=== PATIENT | male | born 1980 | race Two or more races ===

== ENCOUNTER 2018-08-31 11:31 | Inpatient (IN) | payer OTHER ==
[~2018-08-31] VITALS: Ht 172.7 cm; Wt 78.0 kg
--- NOTE | 2018-08-31 11:55 | NUR ---
Note undone in EDM - 08/31/18 at 1222 by CJUWONO C/O ON AND OFF ABDOMINAL PAIN AND BODY PAIN FOR 3 MONS LAST ALCOHOL INTAKE LAST NIGHT. STATES PAIN 8/10, ACHY, FEELING DEHYDRATED. PT AOX4, AMBULATORYVSS, RR EVEN AND UNLABORED ON RA.
--- NOTE | 2018-08-31 11:55 | NUR ---
C/O ON AND OFF ABDOMINAL PAIN AND BODY PAIN FOR 3 MONS LAST ALCOHOL INTAKE LAST NIGHT. STATES PAIN 8/10, ACHY, FEELING DEHYDRATED. PT AOX4, AMBULATORY, VSS, RR EVEN AND UNLABORED ON RA. APPEARS ANXIOUS. MOM AT BEDSIDE. SEEN BY DR KING
[2018-08-31] MEDS ORDERED: LORAZEPAM INJ 2 MG/ML VIAL ONE (11:59)
[2018-08-31] MEDS ORDERED: IV NS 0.9% 1,000 ML BAG IV ONE (12:00)
[2018-08-31] MEDS ORDERED: LORAZEPAM INJ 2 MG/ML VIAL IVP ONE (12:00)
[2018-08-31 12:08] LABS: BASOPHILS # (AUTO) 0.1 /CMM (0.0-0.2); BASOPHILS % (AUTO) 2.5 % (0.0-2.0); EOSINOPHILS % (AUTO) 2.5 % (0.0-6.0); HEMATOCRIT 41 % (39-51); HEMOGLOBIN 14.1 g/dL (13.5-17.5); LYMPHOCYTES # (AUTO) 0.7 /CMM (0.8-4.8); LYMPHOCYTES % (AUTO) 17.8 % (20.0-44.0); MEAN CORPUSCULAR HGB CONC 34 g/dl (31.0-36.0); MEAN CORPUSCULAR VOLUME 95 fL (80-96); MONOCYTES # (AUTO) 0.6 /CMM (0.1-1.30); MONOCYTES % (AUTO) 14.3 % (2.0-12.0); NEUTROPHILS # (AUTO) 2.6 /CMM (1.8-8.9); NEUTROPHILS % (AUTO) 62.9 % (43.0-81.0); PLATELET COUNT (AUTO) 115 /CMM (150-450); RED BLOOD CELL COUNT(AUTO) 4.35 MIL/uL (4.5-6.0); WHITE BLOOD COUNT (AUTO) 4.1 K/uL (4.3-11.0)
[2018-08-31 12:13] LABS: CALCIUM, SERUM 9.3 mg/dL (8.5-10.1); CREATININE 0.8 mg/dL (0.6-1.3); POTASSIUM 4.3 mmol/L (3.5-5.1)
[2018-08-31 12:21] LABS: ALBUMIN 4.3 g/dL (3.4-5.0); BILIRUBIN,DIRECT 0.4 mg/dL (0.0-0.2); BILIRUBIN,TOTAL 1.3 mg/dL (0.2-1.0); SALICYLATE 1.3 mg/dL (2.8-20.0); TOTAL PROTEIN, SERUM 9.2 g/dL (6.4-8.2)
--- NOTE | 2018-08-31 12:21 | NUR ---
IV ACCESS OBTAINED, MEDS GIVEN, IVF INFUSING. PT CECI WELL. PROVIDED URINAL FOR URINE SAMPLE
--- NOTE | 2018-08-31 12:25 | NUR ---
PT TAKEN TO RADIOLOGY VIA [facility]
--- NOTE | 2018-08-31 12:35 | NUR ---
PT BACK FROM RADIOLOGY. RECONNECTED TO IVF. WILL CONT TO MONITOR
--- NOTE | 2018-08-31 13:36 | NUR ---
URINE SENT TO STAT LAB
[2018-08-31 13:43] LABS: APPEARANCE,URINE Slightly Cloudy (CLEAR); BILIRUBIN,URINE SMALL (NEGATIVE); BLOOD, URINE Trace-intact Ery/uL (NEGATIVE); KETONES,URINE Trace (NEGATIVE); LEUKOCYTE ESTERASE ,URINE Negative (NEGATIVE); NITRITE, URINE Negative (NEGATIVE); PROTEIN,URINE 100 mg/dl (NEGATIVE); UGLUCOSE Negative (NEGATIVE)
--- NOTE | 2018-08-31 13:48 | NUR ---
Patient is resting comfortably in bed. Easily aroused. VSS
[2018-08-31 13:49] LABS: COLOR,URINE Dark Yellow (YELLOW)
[2018-08-31 13:55] LABS: BACTERIA,URINE None seen /HPF (None Seen); SQUAMOUS EPITHELIAL CELL,UR Few /HPF (None Seen); WBC,URINE 0-3 /HPF (0-3)
[2018-08-31 13:56] LABS: HYALINE CASTS, URINE 0-1 /LPF (None Seen)
--- NOTE | 2018-08-31 14:04 | NUR ---
REPORT GIVEN TO LUCY VILLAR FOR 207-2 MS
--- NOTE | 2018-08-31 14:50 | NUR ---
[facility]
[2018-08-31 16:00] VITALS: BP 139/86
--- NOTE | 2018-08-31 16:00 | NUR ---
MS QUICK MIXER OPERATOR NOTES PT ADMITTED TO MS UNIT VIA GURNEY IN STABLE CONDITION ACCOMPANIED BY ER STAFF. PT IS A/O X4, AFEBRILE. RESPIRATIONS ARE EVEN AND UNLABORED, NOT IN ANY ACUTE DISTRESS NOTED. PUPILS ARE REACTIVE TO LIGHT, BILATERAL HAND SHEETING PULLER ARE STRONG AND EQUAL. DENIES ANY PAIN AT THIS TIME, HOWEVER PT APPEAR TO BE SHAKY. ABDOMEN IS SOFT AND NONDISTENDED, BOWEL SOUNDS ARE PRESENT IN ALL 4 QUADRANTS UPON AUSCULTATION. DENIES ANY BLADDER DISCOMFORT. NO SKIN ISSUES NOTED. SKIN IS INTACT, KEPT CLEAN AND DRY. IV ACCESS TO LAC G18 INTACT, NO INFILTRATION NOTED. DRESSING KEPT CLEAN AND DRY. MOTHER AT BEDSIDE. TAYLOR PERDOMO NP MADE AWARE OF ADMISSION. SAFETY MEASURES ARE IN PLACE. INSTRUCTED PT TO USE CALL LIGHT WHEN ASSISTANCE IS NEEDED, CALL LIGHT IS LEFT WITHIN REACH. WILL MONITOR THROUGHOUT SHIFT FOR CONTINUITY OF CARE.
[2018-08-31] MEDS ORDERED: MAGNESIUM HYDROXIDE 30 ML UDC PO PRN (16:30)
[2018-08-31] MEDS ORDERED: IV NS 0.9% 1,000 ML IV PRN (16:30)
[2018-08-31] MEDS ORDERED: ACETAMINOPHEN 325 MG TABLET PO PRN (16:30)
[2018-08-31] MEDS ORDERED: ZOLPIDEM TARTRATE 5 MG TABLET PO PRN (16:30)
[2018-08-31] MEDS ORDERED: Z GUARD REMEDY 2 OZ OINT TP PRN (16:30)
[2018-08-31] MEDS: LORAZEPAM INJ 2 MG/ML VIAL IV PRN ×2 (17:17→23:21)
--- NOTE | 2018-08-31 18:57 | NUR ---
MS RN CLOSING NOTES PT ABLE TO MAKE NEEDS KNOWN, NEEDS MET AND RENDERED. PT IS A/O X4, AFEBRILE. RESPIRATIONS ARE EVEN AND UNLABORED, NOT IN ANY ACUTE DISTRESS NOTED. PT DENIES ANY PAIN AT THIS TIME. NO C/O SOB, N/V. IV SITE TO LAC INTACT, NO INFILTRATION NOTED. DRESSING KEPT CLEAN AND DRY. SAFETY MEASURES ARE IN PLACE. ADMINISTERED ATIVAN, WILL NOTE EFFECTIVENESS. REMINDED PT TO USE CALL LIGHT WHENA SSISTNACE IS NEEDED, CALL LIGHT IS LEFT WITHIN REACH. WILL ENDORSE TO NEXT SHIFT FOR CONTINUITY OF CARE.
--- NOTE | 2018-08-31 19:30 | NUR ---
MS RN NOTES: RECEIVED PT ON ROOM AIR AND TOLERATING WELL. NO SOB. NO S/S OF DISTRESS AT THIS TIME. PT HAS IV AND IS BEING INFUSED WITH IV NS AT 75ML/HR. MOTHER AT BEDSIDE. BED KEPT IN LOW, LOCKED POSITION, AND SIDE RAILS X 2UP. WILL CONTINUE TO MONITOR PT.
[2018-08-31] MEDS: HYDROCODONE/APAP 5/325MG 1 EACH TABLET PO PRN (20:18)
--- NOTE | 2018-08-31 20:20 | NUR ---
MS RN NOTES: PT COMPLAINING OF GENERALIZED ACHES/PAINS 10/31. PT WAS ADMINISTERED NORCO 5 PO. WILL CONTINUE TO MONITOR.
[2018-08-31 20:30] VITALS: BP 140/78
[2018-08-31] MEDS: ONDANSETRON HCL/PF 4 MG/2 ML VIAL IVP PRN (23:21)
--- NOTE | 2018-08-31 23:30 | NUR ---
MS RN NOTES: PT COMPLAINING OF FEELING NAUSEOUS. PT WAS ADMINISTERED ZOFRAN 4MG IV. PT ALSO APPEARS TO BE WITHDRAWN AND STATES HE DOES NOT FEEL VERY GOOD. PT WAS ADMINISTERED ATIVAN 2MG IV.
--- NOTE | 2018-09-01 00:35 | NUR ---
MS RN NOTES: EARL PERDOMO AT BEDSIDE.
--- NOTE | 2018-09-01 00:43 | NUR ---
MS RN NOTES: EARL PERODMO AT BEDSIDE.
[2018-09-01] MEDS: THIAMINE HCL 100 MG TABLET PO SCH ×2 (01:13→08:52)
[2018-09-01] MEDS: FOLIC ACID 1 MG TABLET PO SCH ×2 (01:13→08:51)
[2018-09-01] MEDS: HYDROCODONE/APAP 5/325MG 1 EACH TABLET PO PRN ×3 (01:22→13:45)
--- NOTE | 2018-09-01 01:23 | NUR ---
MS AYALA NOTES: PT COMPLAINING OF ABDOMINAL PAIN 10/31. PT WAS ADMINISTERED NORCO 5 PO. Addendum: 09/01/18 at 0124 by ALVARO TOLEDO RN HAD TO MANUALLY ADMIN MEDICATION IT DID NOT SAVE WHEN SAVED WAS PUSH D/T NO ASPHALT PAVER CONNECTION ON COMPUTER.
[2018-09-01] MEDS: LORAZEPAM INJ 2 MG/ML VIAL IV PRN ×2 (05:27→11:38)
[2018-09-01] MEDS: ONDANSETRON HCL/PF 4 MG/2 ML VIAL IVP PRN (05:27)
--- NOTE | 2018-09-01 05:32 | NUR ---
MS RN NOTES: PT NOTED WITH TREMORS AND VERBALIZING THAT HE FEELS LIKE THROWING UP. PT GIVEN ZOFRAN 4MG IV. PT ALSO GIVEN ATIVAN 2MG IV. WILL CONTINUE TO MONITOR.
[2018-09-01 06:46] LABS: BASOPHILS # (AUTO) 0.1 /CMM (0.0-0.2); BASOPHILS % (AUTO) 3.1 % (0.0-2.0); EOSINOPHILS % (AUTO) 5.5 % (0.0-6.0); HEMATOCRIT 40 % (39-51); HEMOGLOBIN 13.6 g/dL (13.5-17.5); LYMPHOCYTES # (AUTO) 0.4 /CMM (0.8-4.8); LYMPHOCYTES % (AUTO) 11.2 % (20.0-44.0); MEAN CORPUSCULAR HGB CONC 34 g/dl (31.0-36.0); MEAN CORPUSCULAR VOLUME 96 fL (80-96); MONOCYTES # (AUTO) 0.5 /CMM (0.1-1.30); MONOCYTES % (AUTO) 12.3 % (2.0-12.0); NEUTROPHILS # (AUTO) 2.6 /CMM (1.8-8.9); NEUTROPHILS % (AUTO) 67.9 % (43.0-81.0); PLATELET COUNT (AUTO) 99 /CMM (150-450); RED BLOOD CELL COUNT(AUTO) 4.16 MIL/uL (4.5-6.0); WHITE BLOOD COUNT (AUTO) 3.9 K/uL (4.3-11.0)
[2018-09-01 06:55] LABS: CALCIUM, SERUM 9.2 mg/dL (8.5-10.1); CREATININE 0.8 mg/dL (0.6-1.3); MAGNESIUM 1.6 mg/dL (1.8-2.4); PHOSPHORUS 3.5 mg/dL (2.5-4.9); POTASSIUM 3.7 mmol/L (3.5-5.1)
--- NOTE | 2018-09-01 07:28 | NUR ---
MS RN CLOSING NOTES: ALL NEEDS WERE ATTENDED AND ANTICIPATED FOR. PT KEPT CLEAN, DRY, AND COMFORTABLE. IV REMAINS INTACT AND IS BEING INFUSED WITH IV NS AT 75ML/HR. MOTHER AT BEDSIDE. BED KEPT IN LOW, LOCKED POSITION, AND SIDE RAILS X 2UP. ENDORSED TO AM NURSE FOR KEO.
--- NOTE | 2018-09-01 07:37 | NUR ---
MS BIAS MACHINE OPERATOR HELPER NOTES RECEIVED PT LAYING IN BED WITH HOB SLIGHTLY ELEVATED. EASILY AROUSABLE. PT IS A/O X4, AFEBRILE. RESPIRATIONS ARE EVEN AND UNLABORED, NOT IN ANY ACUTE DISTRESS NOTED. PUPILS ARE REACTIVE TO LIGHT. DENIES ANY PAIN, SOB, N/V AT THIS TIME. IV ACCESS TO LAC G18 INTACT, NO INFILTRATION NOTED. DRESSING KEPT CLEAN AND DRY. SAFETY MEASURES ARE IN PLACE. INSTRUCTED PT TO USE CALL LIGHT WHEN ASSISTANCE IS NEEDED, CALL LIGHT IS LEFT WITHIN REACH. WILL MONITOR THROUGHOUT SHIFT FOR CONTINUITY OF CARE. Addendum: 09/01/18 at 0738 by ANDRIA FAGAN RN CORRECTION: MS AYALA OPENING NOTES
[2018-09-01 08:00] VITALS: BP 154/85
[2018-09-01 08:22] LABS: BAND % (MANUAL) 1 % (0.0-5.0); EOSINOPHILS % (MANUAL) 4 % (0-4); LYMPHOCYTES % (MANUAL) 9 % (16-48); MONOCYTES % (MANUAL) 10 % (0-11.0); NEUTROPHILS % (MANUAL) 76 (42-76)
[2018-09-01] MEDS: Magnesium 1GM/D5W 100ML PREMIX 100 ML IV SCH ×2 (11:38→13:45)
[2018-09-01] MEDS ORDERED: Thiamine HCL PO (14:03)
[2018-09-01] MEDS ORDERED: LORA-259 PO (14:03)
[2018-09-01] MEDS ORDERED: FOLI1TAB16 PO (14:03)
--- NOTE | 2018-09-01 15:00 | NUR ---
Pt. declined alcohol referrals at this time.
--- NOTE | 2018-09-01 15:00 | NUR ---
MS PLATE COLORER NOTE PT DISCHARGE TO HOME ACCOMPANIED BY HIS MOTHER. PT IS A/O X4, AFEBRILE. RESPIRATIONS ARE EVEN AND UNLABORED, NOT IN ANY ACUTE DISTRESS NOTED. PT DENIES ANY PAIN AT THIS TIME. NO C/O SOB, N/V. PUPILS ARE REACTIVE TO LIGHT, BILATERAL HAND PELTS SKINNER ARE STRONG AND EQUAL. ABDOMEN IS SOFT AND NONDISTENDED, BOWEL SOUNDS ARE PRESENT IN ALL 4 QUADRANTS UPON AUSCULTATION. DENIES ANY BLADDER DISCOMFORT. PT IS CONTINENT AND IS AMBULATORY. NO SKIN ISSUES NOTED. SKIN IS KEPT CLEAN AND DRY. IV ACCESS REMOVED, APPLIED PRESSURE AND TOLERATED WELL. ID BANDS REMOVED. EXPLAINED DISCHARGE PAPERWORK TO PT AND MOTHER AT BEDSIDE WITH VERBAL AND WRITTEN UNDERSTANDING. STRONGLY ENCOURAGED PT TO STOP DRINKING AND TO GO TO REHAB. PER PT HE HAS A REHAB PF HIS CHOICE. PT LEFT IN STABLE CONDITION.
== END 2018-09-01 15:00 | disposition home or self-care (01) | DRG 775 ==
LOC: ER 11:31 → MEDSG2 15:22
PROVIDERS: ADMIT Nurse Practitioner Acute Care
DX: F10.239 Alcohol dependence with withdrawal, unspecified (principal); F10.229 Alcohol dependence with intoxication, unspecified; D69.6 Thrombocytopenia, unspecified; G31.2 Degeneration of nervous system due to alcohol; D72.819 Decreased white blood cell count, unspecified; Y90.5 Blood alcohol level of 100-119 mg/100 ml; R74.0 Nonspecific elevation of levels of transaminase and lactic acid dehydrogenase [LDH]; B19.20 Unspecified viral hepatitis C without hepatic coma; G47.30 Sleep apnea, unspecified; K70.9 Alcoholic liver disease, unspecified
CPT/HCPCS: 36415; 70450-TC; 71045-TC; 76700-TC; 80048-TC; 80061-TC; 80076-TC; 80305; 81000-TC; 83735-TC; 84100-TC; 85025-TC; 87081-TC; G0378; G0480; J2060; J2405; J3475; J7030

== ENCOUNTER 2019-11-28 21:00 | Inpatient (IN) | payer OTHER ==
[~2019-11-28] VITALS: Ht 172.7 cm; Wt 79.4 kg
[~2019-11-28 21:00] MED LIST: FOLI1TAB16 PO; LORA-259 PO; Thiamine HCL PO
[2019-11-28] MEDS ORDERED: IV NS 0.9% 1,000 ML BAG IV ONE (21:30)
[2019-11-28 21:32] LABS: BASOPHILS # (AUTO) 0.1 /CMM (0.0-0.2); BASOPHILS % (AUTO) 2.4 % (0.0-2.0); EOSINOPHILS % (AUTO) 0.6 % (0.0-6.0); HEMATOCRIT 41 % (39-51); HEMOGLOBIN 13.3 g/dL (13.5-17.5); LYMPHOCYTES # (AUTO) 0.8 /CMM (0.8-4.8); LYMPHOCYTES % (AUTO) 19.2 % (20.0-44.0); MEAN CORPUSCULAR HGB CONC 33 g/dl (31.0-36.0); MEAN CORPUSCULAR VOLUME 92 fL (80-96); MONOCYTES # (AUTO) 0.5 /CMM (0.1-1.30); MONOCYTES % (AUTO) 10.8 % (2.0-12.0); NEUTROPHILS # (AUTO) 2.9 /CMM (1.8-8.9); PLATELET COUNT (AUTO) 135 /CMM (150-450); RED BLOOD CELL COUNT(AUTO) 4.43 MIL/uL (4.5-6.0); WHITE BLOOD COUNT (AUTO) 4.3 K/uL (4.3-11.0)
[2019-11-28 21:38] LABS: CALCIUM, SERUM 10.4 mg/dL (8.5-10.1); CARBON DIOXIDE 21 mmol/L (21-32); CHLORIDE 101 mmol/L (98-107); CREATININE 1.2 mg/dL (0.6-1.3); GLUCOSE 140 mg/dL (74-106); POTASSIUM 3.9 mmol/L (3.5-5.1); SODIUM SERUM 140 mmol/L (136-145); UREA NITROGEN, BLOOD 7 mg/dL (7-18)
--- NOTE | 2019-11-28 21:43 | NUR ---
PATIENT CAME TO THE ER BIB RA C/O "I FEEL SAD". PATIENT ADMITS TO USING MARIJUANA AND METH. PATIENT ADMITS TO BEING SUICIDAL BUT DENIES ANY PLANS. DENIES HI. PATIENT IS AAOX3. NO SOB. BREATHING EVENLY AND UNLABORED ON ROOM AIR. CONNECTED TO THE MONITOR. SITTER IS AT BEDSIDE. PATIENT'S CLOTHINGS AND BELONGINGS ARE REMOVED AND PLACED IN TO A LOCKER.
[2019-11-28 21:46] LABS: ACETAMINOPHEN < 2 ug/ml (10-30); ALANINE AMINOTRANSFERASE 51 U/L (12-78); ALBUMIN 4.7 g/dL (3.4-5.0); ALCOHOL, BLOOD 316 mg/dL (0-0); ALKALINE PHOSPHATASE 107 U/L (46-116); ASPARTATE AMINOTRANSFERASE 73 U/L (15-37); BILIRUBIN,DIRECT 0.3 mg/dL (0.0-0.2); BILIRUBIN,TOTAL 0.9 mg/dL (0.2-1.0); SALICYLATE 1.9 mg/dL (2.8-20.0)
--- NOTE | 2019-11-29 00:52 | NUR ---
PATIENT WANTS TO USE CATHERIZATION METHOD TO RETRIEVE URINE. MD NOTIFIED.
--- NOTE | 2019-11-29 01:06 | NUR ---
PATIENT'S URINE IS COLLECTED AND SENT TO THE LAB.
[2019-11-29] MEDS ORDERED: LIDOCAINE 2% JEL UROJET 10 ML MM ONE ×3 (01:14→01:30)
[2019-11-29 02:28] LABS: APPEARANCE,URINE CLEAR (CLEAR); BILIRUBIN,URINE SMALL (NEGATIVE); BLOOD, URINE TRACE-INTA Ery/uL (NEGATIVE); COLOR,URINE YELLOW (YELLOW); KETONES,URINE TRACE (NEGATIVE); LEUKOCYTE ESTERASE ,URINE NEGATIVE (NEGATIVE); NITRITE, URINE NEGATIVE (NEGATIVE); PH,URINE 5.5 (5.0-8.0); PROTEIN,URINE 100 mg/dl (NEGATIVE); UGLUCOSE NEGATIVE (NEGATIVE); UROBILINOGEN,URINE 0.2 EU/dL (0.2)
[2019-11-29 02:36] LABS: BACTERIA,URINE None seen /HPF (None Seen); RBC,URINE 0-2 /HPF (0-2); WBC,URINE 0-2 /HPF (0-3)
[2019-11-29 02:45] LABS: SQUAMOUS EPITHELIAL CELL,UR Few /HPF (None Seen)
--- NOTE | 2019-11-29 02:57 | NUR ---
PATIENT IS SLEEPING. EASILY AROUSABLE THROUGH TACTILE AND VERBAL STIMULI. PATIENT'S RESPIRATIONS ARE EVEN AND UNLABORED. PATIENT IS CONNECTED TO THE MONITOR. SITTER IS AT BEDSIDE.
--- NOTE | 2019-11-29 04:01 | NUR ---
PT AMBULATED TO THE RESTROOM, VSS.
--- NOTE | 2019-11-29 05:41 | NUR ---
Patient is resting comfortably in bed. Easily aroused. VSS.
[2019-11-29] MEDS ORDERED: LORAZEPAM 1 MG TABLET ONE (06:58)
[2019-11-29] MEDS ORDERED: LORAZEPAM 1 MG TABLET PO ONE (07:00)
[2019-11-29] MEDS ORDERED: LORAZEPAM INJ 2 MG/ML VIAL IV ONE (08:00)
[2019-11-29] MEDS ORDERED: IV NS 0.9% 1,000 ML IV ONE (08:00)
[2019-11-29] MEDS ORDERED: LORAZEPAM INJ 2 MG/ML VIAL ONE (08:03)
--- NOTE | 2019-11-29 08:06 | NUR ---
ASSESSED PT ON BED AAOX4, NOT IN RESPIRATORY DISTRESS, V/S STABLE, KEPT RESTED AND COMFORTABLE. WILL CONTINUE TO MONITOR.
--- NOTE | 2019-11-29 08:07 | NUR ---
CALL FOR TELE BED. AND SUBMITTED MOVE SHEET TO ADMITTING.
--- NOTE | 2019-11-29 08:25 | NUR ---
COVID SWAB OBTAINED AND SENT TO LAB.
--- NOTE | 2019-11-29 08:50 | NUR ---
CLINICALS GIVEN TO EUN ([phone]) OF [employer]. GAVE AUTH TO ADMIT PATIENT.
--- NOTE | 2019-11-29 09:07 | NUR ---
HOUSE SUP AWARE OF PATIENT AUTH TO ADMIT.
--- NOTE | 2019-11-29 09:48 | NUR ---
room 111-1
--- NOTE | 2019-11-29 09:53 | NUR ---
report given to lisa jones for devika
--- NOTE | 2019-11-29 10:00 | NUR ---
CARLOS RN NOTES RECEIVED REPORT FROM JADA SPEARS. PT ARRIVED AN HOUR LATER WITH THE STRETCHER. PT VS WNL. ALERT AND ORIENTED X3. PT HAS ETOH WITHDRAWALS. SEIZURES PRECAUTIONS ARE TAKEN. SAFETY MEASUREMENTS ARE IMPLEMENTED. BED IS IN THE LOWEST POSITION. SIDE RAILS ARE UPX2. WILL CONTINUE TO MONITOR Addendum: 11/29/19 at 1928 by DAVID ANDRADE RN PT HAS LITTLE BRUISING ON HIS LEFT LEG. PT DOESN'T REMEMBER HOW IT HAPPENED
--- NOTE | 2019-11-29 10:25 | NUR ---
TRANSFERRED TO TELE UNIT VIA [facility].
[2019-11-29] MEDS ORDERED: ONDANSETRON HCL/PF 4 MG/2 ML VIAL IVP PRN (12:00)
[2019-11-29] MEDS ORDERED: MAGNESIUM HYDROXIDE 30 ML UDC PO PRN (12:00)
[2019-11-29] MEDS ORDERED: LORAZEPAM INJ 2 MG/ML VIAL IV PRN (12:00)
[2019-11-29] MEDS ORDERED: MAG HYDROX/AL HYDROX/SIMETH 30 ML UDC PO PRN (12:00)
[2019-11-29] MEDS ORDERED: HYDROCODONE/APAP 5/325MG TABLET PO PRN (12:00)
[2019-11-29] MEDS: FOLIC ACID 1 MG TABLET PO SCH (12:42)
[2019-11-29] MEDS: THIAMINE HCL 100 MG TABLET PO SCH (12:42)
--- NOTE | 2019-11-29 14:26 | NUR ---
CARLOS FISH CHECKER NOTES TRANSFERRED PT TO [facility] AND GAVE REPORT TO MARIOLA Villa. PT IS STABLE AND NORMAL VS. PT WAS TRANSFERRED PER [facility]. SAFETY MEASUREMENTS ARE IMPLEMENTED. BED IS IN THE LOWEST POSITION LOCKED AND RAILS ARE UP X2. ENDORSED TO THE NURSE
[2019-11-29 17:03] VITALS: BP 147/89
--- NOTE | 2019-11-29 19:08 | NUR ---
CARLOS LYE MACHINE OPERATOR CLOSING NOTES PT IS RESTING IN BED. ALERT AND ORIENTED X3. PT IS ON RA SAT IN 98%. LAC#18 IS FLUSHING WELL, INTACT AND NO INFILTRATION NOTED.PT HAS BEEN EXPERIENCING ETOH WITHDRAWALS. SEIZURES PRECAUTIONS ARE TAKEN. SAFETY MEASUREMENTS ARE IMPLEMENTED. BED IS IN THE LOWEST POSITION. SIDE RAILS ARE UPX2. WILL ENDORSE TO NIGHTSHIFT NURSE
[2019-11-29 20:00] VITALS: BP 138/74
--- NOTE | 2019-11-29 20:00 | NUR ---
RN OPENING NOTE PT RECEIVED IN BED.PT IS A/A/O X3. PT IS ON RA SAT IN 100%. TELE MONITOR SHOWING SINUS TACHY HR OF 104.PT HAS LAC G 18 IS FLUSHING WELL, AND DRESSING INTACT . SEIZURES PRECAUTIONS IN PLACE, SAFETY MEASUREMENTS IN PLACE BED IS IN THE LOWEST POSITION, AND LOCKED, SIDE RAILS ARE UPX2, CALL LIGHT IN REACH.
[2019-11-29] MEDS: IV D5/0.45 NACL 1,000 ML IV PRN (20:06)
[2019-11-29] MEDS: ACETAMINOPHEN 325 MG TABLET PO PRN (20:30)
--- NOTE | 2019-11-29 22:00 | NUR ---
SHIPPING HELPER NOTE PT TURN COVID PCR RESULT NEGATIVE. NERISSA CUT OFF SAWYER INFORMED AND ALSO INFORMED NURSING OPERATING ROOM ASSISTANT. PER ALICIA PERDUE MOVE THE PT TO CLEAN SIDE OF THE UNIT FOR NOW UNTIL AM.
[2019-11-30] VITALS: BP 140/89
[2019-11-30 04:00] VITALS: BP 145/89
[2019-11-30] MEDS: IV D5/0.45 NACL 1,000 ML IV PRN ×2 (04:14→12:46)
[2019-11-30 06:40] LABS: BASOPHILS % (AUTO) 0.6 % (0.0-2.0); EOSINOPHILS % (AUTO) 5.8 % (0.0-6.0); HEMATOCRIT 40 % (39-51); HEMOGLOBIN 12.9 g/dL (13.5-17.5); LYMPHOCYTES # (AUTO) 0.6 /CMM (0.8-4.8); LYMPHOCYTES % (AUTO) 11.8 % (20.0-44.0); MEAN CORPUSCULAR HGB CONC 33 g/dl (31.0-36.0); MEAN CORPUSCULAR VOLUME 92 fL (80-96); MONOCYTES # (AUTO) 0.1 /CMM (0.1-1.30); MONOCYTES % (AUTO) 2.4 % (2.0-12.0); NEUTROPHILS # (AUTO) 4.1 /CMM (1.8-8.9); NEUTROPHILS % (AUTO) 79.4 % (43.0-81.0); PLATELET COUNT (AUTO) 92 /CMM (150-450); RED BLOOD CELL COUNT(AUTO) 4.31 MIL/uL (4.5-6.0); WHITE BLOOD COUNT (AUTO) 5.1 K/uL (4.3-11.0)
[2019-11-30 06:53] LABS: THYROID STIMULATING HORMONE 4.984 uIU/mL (0.358-3.74)
--- NOTE | 2019-11-30 06:55 | NUR ---
LOBSTERMAN NOTE PT IN BED ASLEEP, EASILY AROUSABLE NO DISTRESS OR DISCOMFORT NOTED. DENIES PAIN. IVF INFUSING WELL. ON TELE ST HR 101. SIDE RAILS UP X 2 AND CALL LIGHT WITHIN REACH. WILL ENDORSE TO DAY SHIFT NURSE FOR CONTINUE TO CARE.
[2019-11-30 07:19] LABS: CALCIUM, SERUM 9.1 mg/dL (8.5-10.1); CREATININE 0.6 mg/dL (0.6-1.3); MAGNESIUM 1.7 mg/dL (1.8-2.4); PHOSPHORUS 3.5 mg/dL (2.5-4.9); POTASSIUM 3.4 mmol/L (3.5-5.1)
--- NOTE | 2019-11-30 07:30 | NUR ---
RN OPENING NOTES PATIENT IN BED, A/OX3-4, ON ROOM AIR, SPO2 OF 98%, NO SOB, RESP DISTRESS NOTED, AMBULATORY, SKIN IS INTACT, IV LINE ON L AC NOTED, INTACT AND PATENT, SAFETY MEASURES IMPLEMENTED, CALL LIGHT IN REACH, BED IN LOWEST POSITION, WILL CONT TO MONITOR
[2019-11-30 07:33] LABS: EOSINOPHILS % (MANUAL) 6 % (0-4); LYMPHOCYTES % (MANUAL) 11 % (16-48); MONOCYTES % (MANUAL) 3 % (0-11.0); NEUTROPHILS % (MANUAL) 75 (42-76)
[2019-11-30 07:34] LABS: BAND % (MANUAL) 5 % (0.0-5.0)
[2019-11-30 08:00] VITALS: BP 168/88
[2019-11-30] MEDS: PANTOPRAZOLE 40 MG TABLET.DR PO SCH (08:13)
[2019-11-30] MEDS: FOLIC ACID 1 MG TABLET PO SCH (08:13)
[2019-11-30] MEDS: THIAMINE HCL 100 MG TABLET PO SCH (08:13)
[2019-11-30] MEDS ORDERED: POTASSIUM CHLORIDE 20 MEQ TAB.PRT.SR PO ONE (12:00)
[2019-11-30] MEDS: Magnesium 1GM/D5W 100ML PREMIX 100 ML IV SCH ×2 (12:42→14:20)
[2019-11-30 16:00] VITALS: BP 139/86
--- NOTE | 2019-11-30 17:39 | NUR ---
Patient reports being homeless. Has hx of substance abuse annd depression. He is ambulatory and independent with adl's. Referred to bilingual social worker for homeless and substance abuse resources. Addendum: 11/30/19 at 1740 by DERREK HEREDIA RN Amended: Links added.
[2019-11-30 18:00] VITALS: BP 139/86
--- NOTE | 2019-11-30 19:30 | NUR ---
RN CLOSING NOTE REMAINS IN BED, TOLERATING IV FLUIDS WELL, NO SOB, DENIES PAIN. ALL MEDICATIONS ARE GIVEN, COMFORT NEEDS ATTEMPT, SAFETY MEASURES IN PLACE, CALL LIGHT IN REACH, BED IN LOWEST POSITION, WILL ENDORSE TO PM RN FOR KEO
--- NOTE | 2019-11-30 19:50 | NUR ---
CLIENT DELIVERY SPECIALIST NOTES PATIENT IN BED, AWAKE, ALERT AND ORIENTED X 3. BREATHING EVEN AND UNLABORED ON ROOM AIR. SHOWS NO SIGNS OF ACUTE RESPIRATORY DISTRESS, NO ACUTE PAIN. IV ON LAC 18G RUNNING D 5 1/2 NS AT 125ML/HR. SHOWS NO SIGNS OF INFILTRATION, NO REDNESS. SAFETY PRECAUTIONS IN PLACE. BED IN LOWEST POSITION, LOCKED, AND CALL LIGHT KEPT WITHIN REACH. WILL CONTINUE TO MONITOR.
[2019-11-30] MEDS: ACETAMINOPHEN 325 MG TABLET PO PRN (19:56)
[2019-11-30 20:00] VITALS: BP 141/92
[2019-12-01] VITALS: BP 135/78
--- NOTE | 2019-12-01 | NUR ---
REEL CART OPERATOR NOTES PATIENT BELONGINGS FOUND IN ER LOCKED. SHIRT, SHORTS, SOCKS, WALLET, AND PHONE. PUT INSIDE BEDSIDE DRAWER. WILL CONTINUE TO MONITOR.
[2019-12-01] MEDS: IV D5/0.45 NACL 1,000 ML IV PRN (02:16)
[2019-12-01 04:00] VITALS: BP 130/76
[2019-12-01 05:52] VITALS: BP 130/76
--- NOTE | 2019-12-01 07:14 | NUR ---
FREIGHT SOLICITOR NOTES PATIENT IN BED, ASLEEP, ALERT AND ORIENTED X 3. BREATHING EVEN AND UNLABORED ON ROOM AIR. SHOWS NO SIGNS OF ACUTE RESPIRATORY DISTRESS, NO ACUTE PAIN. TELE MONITOR SR. IV ON LAC 18G RUNNING D 5 1/2 NS AT 125ML/HR. SHOWS NO SIGNS OF INFILTRATION, NO REDNESS. ALL DUE MEDICATIONS GIVEN. SAFETY PRECAUTIONS IN PLACE. BED IN LOWEST POSITION, LOCKED, AND CALL LIGHT KEPT WITHIN REACH. WILL ENDORSE TO ONCOMING NURSE.
[2019-12-01 07:22] LABS: BASOPHILS % (AUTO) 0.7 % (0.0-2.0); EOSINOPHILS % (AUTO) 7.2 % (0.0-6.0); HEMATOCRIT 38 % (39-51); HEMOGLOBIN 12.6 g/dL (13.5-17.5); LYMPHOCYTES # (AUTO) 0.4 /CMM (0.8-4.8); LYMPHOCYTES % (AUTO) 7.7 % (20.0-44.0); MEAN CORPUSCULAR HGB CONC 33 g/dl (31.0-36.0); MEAN CORPUSCULAR VOLUME 92 fL (80-96); MONOCYTES # (AUTO) 0.2 /CMM (0.1-1.30); MONOCYTES % (AUTO) 5.1 % (2.0-12.0); NEUTROPHILS # (AUTO) 3.7 /CMM (1.8-8.9); NEUTROPHILS % (AUTO) 79.3 % (43.0-81.0); PLATELET COUNT (AUTO) 84 /CMM (150-450); RED BLOOD CELL COUNT(AUTO) 4.17 MIL/uL (4.5-6.0); WHITE BLOOD COUNT (AUTO) 4.7 K/uL (4.3-11.0)
--- NOTE | 2019-12-01 07:30 | NUR ---
SERGEANT MISSILE CREWMAN NOTES PT IN BED, AWAKE, ALERT AND ORIENTED, DENIES PAIN, RESPIRATIONS NORMAL, IV FLUIDS INFUSING WELL, CALL LIGHT WITHIN REACH, NEEDS ATTENDED.
[2019-12-01 07:40] LABS: CALCIUM, SERUM 9.3 mg/dL (8.5-10.1); CREATININE 0.7 mg/dL (0.6-1.3); MAGNESIUM 1.8 mg/dL (1.8-2.4); POTASSIUM 3.4 mmol/L (3.5-5.1)
[2019-12-01 08:00] VITALS: BP 133/97
[2019-12-01] MEDS: PANTOPRAZOLE 40 MG TABLET.DR PO SCH (08:29)
[2019-12-01] MEDS: FOLIC ACID 1 MG TABLET PO SCH (08:29)
[2019-12-01] MEDS: THIAMINE HCL 100 MG TABLET PO SCH (08:29)
[2019-12-01 10:17] LABS: BAND % (MANUAL) 1 % (0.0-5.0); EOSINOPHILS % (MANUAL) 6 % (0-4); LYMPHOCYTES % (MANUAL) 10 % (16-48); MONOCYTES % (MANUAL) 9 % (0-11.0); NEUTROPHILS % (MANUAL) 74 (42-76)
[2019-12-01] MEDS ORDERED: POTASSIUM CHLORIDE 20 MEQ TAB.PRT.SR PO SCH (11:00)
--- NOTE | 2019-12-01 12:17 | NUR ---
Social Service consult requested by Quinn Garcia DNP for a homeless and substance use. Patient presented to [facility] ER on 11/29. Per MD notes, Patient is a 39-year-old male with a past medical history of hypertension and hepatitis C who was brought in by EMS and escorted by AVANI for suicidal ideations. [employer] states that patient walked into [facility] and stated that he was suicidal with plans to "cut his wrist." On presentation, patient was alert and oriented x3. Patient admits to suicidal ideations confirming that he has plans to cut his wrist. He admits to drinking alcohol and smoking meth earlier today. He also admits to marijuana use earlier today. Patient was receptive to speaking with this SW, patient alert and oriented x4. Patient reports living in a home in [place] with and [id number]. Patient reports that he currently works as a construction safety consultant and at the moment does not have a job. Patient reports that his does [employer]. Patient reports not government assistance in the home. Patient reports consuming malt liquor and loses track of how much he consumes. Patient does not report drug or cigarette use. Patient denies auditory and visual hallucinations. Patient denies suicidal and homicidal ideations. Patient reports that he is in the hospital to let the wave . Patient did not want to elaborate on this. When this SW asked the patient if when he is discharged if his could pick him up. Patient reports that she cannot as she needs the car for [employer] and when this SW offered a TAP Card, patient stated I dont need it, buses are free. Patient declined substance use resources when offered. This SW to remain available for all needs regarding this patient.
--- NOTE | 2019-12-01 12:24 | NUR ---
RACE ENGINE BUILDER NOTES PT AWAKE, ALERT AND ORIENTED, NO COMPLAINT OF PAIN OR ANY DISCOMFORT, NO SI NOTED, BREATHING PATTERN NORMAL, AMBULATES TO THE ROOM WITH STEADY GAIT, VERBALIZED THAT HE WANTS TO LEAVE AMA, EXPLAINED RISKS AND BENEFITS FOR LEAVING AMA, STILL WANTED TO LEAVE, CONVINCED PT TO WAIT A WHILE FOR THE DOCTOR TO SEE HIM, STILL REFUSED TO STAY, ADVISED PT TO FOLLOW UP WITH HIS PRIMARY CARE DOCTOR AND TO GO BACK TO E.R. IN CASE OF EMERGENCY, BELONGINGS ACCOUNTED FOR, AMA FORM SIGNED, STATED THAT HE WILL TAKE THE BUS HOME, ACCOMPANIED BY SKIP PITMAN TO HOSPITAL LOBBY, LEFT IN STABLE CONDITION, DR. WANG INFORMED.
== END 2019-12-01 12:20 | disposition left against medical advice (07) | DRG 775 ==
LOC: ER 21:05 → TELE1 11-29 09:51 → TELE 11-30 10:37
PROVIDERS: ATTEND Nurse Practitioner Acute Care
DX: F10.239 Alcohol dependence with withdrawal, unspecified (principal); Y90.8 Blood alcohol level of 240 mg/100 ml or more; F10.229 Alcohol dependence with intoxication, unspecified; I10 Essential (primary) hypertension; F12.10 Cannabis abuse, uncomplicated; B19.20 Unspecified viral hepatitis C without hepatic coma; Z79.899 Other long term (current) drug therapy; F19.10 Other psychoactive substance abuse, uncomplicated; E83.52 Hypercalcemia; E88.09 Other disorders of plasma-protein metabolism, not elsewhere classified; R45.851 Suicidal ideations; Z59.0 Homelessness
CPT/HCPCS: 36415; 80048-TC; 80061-TC; 80076-TC; 80305; 81000-TC; 83735-TC; 84100-TC; 84443-TC; 85025-TC; 87081-TC; G0378; G0480; J2060; J3475; J3490; J7030; U0003-CS